=== PATIENT | female | born 1995 | race American Indian/Alaskan Native ===

== ENCOUNTER 2017-07-19 14:42 | Inpatient (IN) | payer OTHER ==
[2017-07-19 17:36] LABS: Basophils % (Auto) 0.5 % (0.0-1.8); Eosinophils % (Auto) 0.4 % (0.0-4.3); Hematocrit 34.4 % (30.3-42.9); Hemoglobin 11.5 gm/dl (10.1-14.3); Mean Corpuscular HGB Conc 34 % (30-34); Mean Corpuscular Hemoglobin 29 pg (28-32); Mean Corpuscular Volume 86 fl (79-97); Platelet Count 258 K/mm3 (140-440); Red Blood Count 4.01 M/mm3 (3.65-5.03); Red Cell Distribution Width 14.2 % (13.2-15.2); White Blood Count 13.7 K/mm3 (4.5-11.0)
[2017-07-19 17:54] LABS: Alanine Aminotransferase 7 units/L (7-56); Albumin 4.3 g/dL (3.9-5); Albumin/Globulin Ratio 1.3 %; Alkaline Phosphatase 51 units/L (35-129); Anion Gap 18 mmol/L; BUN/Creatinine Ratio 23; Blood Urea Nitrogen 14 mg/dL (7-17); Calcium 9.2 mg/dL (8.4-10.2); Carbon Dioxide 23 mmol/L (22-30); Glucose 100 mg/dL (65-100); Lipase 24 units/L (13-60); Potassium 3.9 mmol/L (3.6-5.0); Sodium 137 mmol/L (137-145); Total Protein 7.6 g/dL (6.3-8.2)
[2017-07-19 19:33] LABS: Bilirubin,Urine NEG (Negative); Blood,Urine SM (Negative); Ketones,Urine TR mg/dL (Negative); Leukocyte Esterase,Urine NEG (Negative); Mucus,Urine 3+ /HPF; Nitrite,Urine NEG (Negative); Urobilinogen,Urine < 2.0 mg/dL (<2.0)
--- NOTE | 2017-07-19 23:15 | Emergency Department Report ---
HPI - General Chief Complaint: Urogenital-Female Time Seen by Provider: 07/19/17 22:41 - HPI HPI: This is a 22-year-old female presents to the emergency department with the complaint of some body aches, lower abdominal/pelvic discomfort and suprapubic or pelvic pressure that she believes is a urinary tract infection and all this has been going on for the past 2 weeks. It appeared to worsen last night. She is not taking anything for her symptoms prior to presentation. She also complains of some nonspecific dizziness. She says that she is late on her current menstrual cycle as her last menstrual cycle was about 06/12/17. She has concern about some of the symptoms that she says the last time she had this set of symptoms it was a miscarriage with some type of placental rupture or abruption. She does not currently have a primary care physician or FINANCIAL AIDS OFFICER. No recent travel or sick contacts at home. She denies any vaginal bleeding, fever, nausea, vomiting. ED Past Medical Hx - Past Medical History Previous Medical History?: Yes - Surgical History Past Surgical History?: Yes Additional Surgical History: Miscarriage 2015 - Social History Smoking Status: Former Smoker Substance Use Type: Other ED Review of Systems ROS: Stated complaint: BLOOD IN URINE, ABDOMINAL PAIN Other details as noted in HPI Comment: All other systems reviewed and negative Constitutional: denies: chills, fever Eyes: denies: eye pain, eye discharge, vision change ENT: denies: ear pain, throat pain Respiratory: denies: cough, shortness of breath, wheezing Cardiovascular: denies: chest pain, palpitations Gastrointestinal: abdominal pain. denies: nausea, vomiting Genitourinary: dysuria. denies: discharge Musculoskeletal: myalgia. denies: joint swelling Skin: denies: rash, lesions Neurological: other (dizzy). denies: headache, weakness, paresthesias Physical Exam - Physical Exam Vital Signs: Vital Signs 07/19/17 07/19/17 17:02 22:11 Temperature 98.8 F 98.3 F Pulse Rate 134 H 116 H Respiratory 20 20 Rate Blood Pressure 123/85 134/77 O2 Sat by Pulse 97 100 Oximetry Physical Exam: GENERAL: The patient is well-developed well-nourished. HENT: Normocephalic. Atraumatic. Patient has moist mucous membranes. EYES: Extraocular motions are intact. Pupils equal reactive to light bilaterally. NECK: Supple. Trachea is midline. CHEST/LUNGS: Clear to auscultation. There is no respiratory distress noted. HEART/CARDIOVASCULAR: Regular. There is mild tachycardia. There is no gallop rub or murmur. ABDOMEN: Abdomen is soft. There is some tenderness palpation to the lower quadrants of the abdomen. No guarding or rebound tenderness. No peritoneal signs. Patient has normal bowel sounds. There is no abdominal distention. SKIN: Skin is warm and dry. NEURO: The patient is awake, alert, and oriented. The patient is cooperative. The patient has no focal neurologic deficits. The patient has normal speech. MUSCULOSKELETAL: There is no tenderness or deformity. There is no limitation range of motion. There is no evidence of acute injury. ED Course Vital Signs 07/19/17 07/19/17 17:02 22:11 Temperature 98.8 F 98.3 F Pulse Rate 134 H 116 H Respiratory 20 20 Rate Blood Pressure 123/85 134/77 O2 Sat by Pulse 97 100 Oximetry - Consultations Consultation #1: I spoke to the FINANCIAL AIDS OFFICER professional bondsman, Dr. Quinones, regarding the patient's presentation , labs and the imaging study showing concern for ectopic in the abdomen. She recommended admission to her service to mother baby, IV fluid resuscitation at 125 mL per hour, and they will evaluate the patient in the morning. 07/20/17 00:53 ED Medical Decision Making - Lab Data Result diagrams: 07/19/17 17:22 07/19/17 17:22 - Radiology Data Radiology results: report reviewed EXAM: US OB T lt; = 14 WEEKS FETUS HISTORY: preg, abd pain TECHNIQUE: Transabdominal imaging was obtained of the pelvis. FINDINGS: The uterus measures 9.2 cm x 4 cm x 5.4 cm. The endometrial thickness is 11.6 millimeters and is heterogeneous in echotexture. There is no evidence of an intrauterine . There is a complex mass superior to the bladder and anterior to the uterus measuring 5.1 cm x 6.1 cm x 5.3 cm. An ectopic is suspected. There is considerable free fluid the pelvis. The maternal right ovary measures 3.3 cm x 2.1 cm x 3.1 cm. The left ovary measures 4.4 cm x 2.1 cm x 3.7 cm. IMPRESSION: Complex mass superior to the bladder and anterior to the uterus measuring 5.1 cm x 6.1 cm x 5.3 cm with associated to considerable free fluid the pelvis. Ectopic is suspected. No evidence of an IUP otherwise. Transcribed By: RB Dictated By: QUITA CHUNG MD Electronically Authenticated By: QUITA CHUNG MD Signed Date/Time: 07/19/172021 - Medical Decision Making 22-year-old female presents with a few weeks of some lower abdominal and/or pelvic discomfort and a sensation like she has a urinary tract infection. This worsened last night. Labs are grossly unremarkable except for she was positive for a urine and then had a beta hCG of about 1300. Sent for an ultrasound which shows a complex mass superior to the bladder and anterior to the uterus concerning for an ectopic . She will be admitted to mother baby for further evaluation by FINANCIAL AIDS OFFICER. The patient understands and agrees to the plan. - Differential Diagnosis , ectopic, fibroids, UTI Critical Care Time: No Critical care attestation.: If time is entered above; I have spent that time in minutes in the direct care of this critically ill patient, excluding procedure time. ED Disposition Clinical Impression: Pelvic pain Ectopic without intrauterine Qualifiers: Location of ectopic : abdominal Qualified Code(s): O00.00 - Abdominal without intrauterine Abdominal pain Qualifiers: Abdominal location: lower abdomen, unspecified Qualified Code(s): R10.30 - Lower abdominal pain, unspecified Disposition: -09 OP ADMIT IP TO THIS HOSP Is pt being admited?: Yes Condition: Stable Referrals: PRIMARY CARE, [Primary Care Provider] - 3-5 Days Time of Disposition: 00:49
--- NOTE | 2017-07-20 00:25 | Ultrasound Report ---
FINAL REPORT EXAM: US OB \T\lt; = 14 WEEKS FETUS HISTORY: preg, abd pain TECHNIQUE: Transabdominal imaging was obtained of the pelvis. FINDINGS: The uterus measures 9.2 cm x 4 cm x 5.4 cm. The endometrial thickness is 11.6 millimeters and is heterogeneous in echotexture. There is no evidence of an intrauterine . There is a complex mass superior to the bladder and anterior to the uterus measuring 5.1 cm x 6.1 cm x 5.3 cm. An ectopic is suspected. There is considerable free fluid the pelvis. The maternal right ovary measures 3.3 cm x 2.1 cm x 3.1 cm. The left ovary measures 4.4 cm x 2.1 cm x 3.7 cm. IMPRESSION: Complex mass superior to the bladder and anterior to the uterus measuring 5.1 cm x 6.1 cm x 5.3 cm with associated to considerable free fluid the pelvis. Ectopic is suspected. No evidence of an IUP otherwise.
--- NOTE | 2017-07-20 00:44 | Ultrasound Report ---
FINAL REPORT EXAM: US OB TRANSVAGINAL HISTORY: preg, abd pain TECHNIQUE: Transvaginal imaging was obtained the pelvis. FINDINGS: The uterus is anteverted measuring 9.2 cm x 4 cm x 5.4 cm. The endometrial thickness is 11.6 millimeters and has a somewhat heterogeneous echotexture. And IUP is not identified. Above the bladder is a large complex mass position anterior to the uterus measuring 5.1 cm x 6.1 cm x 5.3 cm. This is suspicious for an ectopic . There is considerable free fluid in the pelvis. Hemoperitoneum cannot be excluded. The maternal ovaries are unremarkable. The right ovary measures 3.3 cm x 2.1 cm x 3.1 cm. The left ovary measures 4.4 cm x 2.1 cm x 3.7 cm. IMPRESSION: Complex mass above the bladder as described with considerable free fluid the pelvis. The findings are highly suspicious for an ectopic with hemoperitoneum. No evidence of an IUP otherwise. The findings were discussed with Dr. Arciniega at 12:23 a.m. on 07/20/2017.
[2017-07-20] MEDS ORDERED: NACL 0.9% 1000 ML 1,000 ML IV SCH (01:00)
--- NOTE | 2017-07-20 02:42 | History and Physical Report ---
History of Present Illness Date of examination: 07/20/17 Date of admission: 07/20/17 00:49 Chief complaint: Missed period and abdominal pain History of present illness: This is a 22-year-old female 3, para 0 who comes in with a history of last menstrual period of 06/12/2017 and vague lower abdominal pain and some dizziness. HCG level is 1332 and transvaginal and abdominal ultrasonography show an echogenic mass anterior to the uterus and a moderate amount of free fluid and what is probably blood in the pelvis. The patient does not appear unstable, however, is very tender on abdominal palpation, and her abdomen is slightly distended. Vital signs are slightly abnormal with some tachycardia. I discussed these results with the patient and explained to her that there is clearly intra-abdominal bleeding coming from the pelvis as seen on the pelvic ultrasound. There is a mass in the pelvis and that the most likely explanation of this appearance is an ectopic that is ruptured. Also, explained is unusual to see this at this early stage of destinations that she is only about 5 weeks and that there were other explanations that were possible, including but not limited to a ruptured ovarian cyst of some sort and a concomitant very early . I explained that it would to require operation to sort this out and she was consented for laparoscopy or laparotomy depending on my judgment at the time of surgery or depending on the need to evaluating, removing or even saving some structures. She understands that there is a possibility of losing part or all of the fallopian tube and part or all of an ovary. Her past OB history is significant for a spontaneous at 9 weeks in 2014 and another spontaneous at "2 months"when she had to be given medicine to pass what remained of the fetus after her water broke spontaneously. She denies STDs, except for chlamydia, which she knows she was diagnosed with 2014. She does not know her blood type but does not remember being given RhoGAM in the past. Past History Past Medical History: no pertinent history Past Surgical History: no surgical history HEADHUNTER History: chlamydia. denies: gonorrhea, HIV Family/Genetic History: none Medications and Allergies Allergies Allergy/AdvReac Type Severity Reaction Status Date / Time shellfish derived Allergy Hives Verified 07/19/17 17:02 mosquitos Allergy Rash Uncoded 07/19/17 17:02 oranges Allergy Rash Uncoded 07/19/17 17:02 Active Meds: Active Medications Sodium Chloride (Nacl 0.9% 1000 Ml) 1,000 mls @ 125 mls/hr IV DIRECT JUNIOR Review of Systems All systems: negative - Vital Signs Vital signs: Vital Signs Temp Pulse Resp BP Pulse Ox 98.8 F 134 H 20 123/85 97 07/19/17 17:02 07/19/17 17:02 07/19/17 17:02 07/19/17 17:02 07/19/17 17:02 Temp Pulse Resp BP Pulse Ox 98.5 F 109 H 23 97/54 100 07/20/17 00:25 07/20/17 00:30 07/20/17 00:30 07/20/17 00:30 07/20/17 00:30 - Physical Exam Breasts: Positive: deferred Cardiovascular: Regular rate Lungs: Positive: Clear to auscultation Abdomen: Positive: distention, tenderness, guarding (some guarding on deep palpation) Genitourinary (Female): Positive: normal external genitalia (remainder of pelvic exam deferred due to possible rupturing ectopic ) Results Result Diagrams: 07/19/17 17:22 07/19/17 17:22 All other labs normal. Assessment and Plan - Patient Problems (1) Hemorrhage, intra-abdominal Current Visit: Yes Status: Acute Plan to address problem: Patient to be taken to the OR to evaluate what appears to be intra-abdominal bleeding coming from the pelvis and is most likely a ruptured ectopic . However, there is some on typical aspects of this including a mass anterior to the uterus and is possible that this is a ruptured ovarian cyst or a ruptured dermoid, although the patient does not appear to be tender enough for ruptured dermoid. We will attempt to do this laparoscopically. However, the patient's consented for conversion to laparotomy if necessary. She is also consented for blood transfusion. (2) Ectopic without intrauterine Current Visit: Yes Status: Acute Qualifiers: Location of ectopic : abdominal Laterality: L Qualified Code(s) : O00.00 - Abdominal without intrauterine
--- NOTE | 2017-07-20 03:23 | Anesthesia Consultation ---
Anesthesia Consult and Med Hx Date of service: 07/20/17 - Airway Anesthetic Teeth Evaluation: Good ROM Head & Neck: Adequate Mental/Hyoid Distance: Adequate Mallampati Class: Class I Intubation Access Assessment: Good - Pulmonary Exam CTA: Yes - Cardiac Exam Cardiac Exam: RRR - Pre-Operative Health Status ASA Pre-Surgery Classification: ASA2, Emergency Proposed Anesthetic Plan: General - Pulmonary Hx Smoking: No (former) Hx Asthma: Yes (minemal inhaler use) - Cardiovascular System Hx Cardia Arrhythmia: Yes (tachycardia)
--- NOTE | 2017-07-20 03:23 | Anesthesia Day of Surgery ---
Anesthesia Day of Surgery - Day of Surgery Patient Examined: Yes Patient H&P Reviewed: Yes Patient is NPO: Yes
[2017-07-20] MEDS ORDERED: PERCOCET 5/325 PO PRN ×2 (03:24→05:10)
[2017-07-20] MEDS ORDERED: ZOFRAN IV PRN ×2 (03:24→05:10)
[2017-07-20] MEDS ORDERED: DILAUDID IV PRN (03:24)
[2017-07-20] MEDS ORDERED: DIPRIVAN 10 MG/ML IV ONE (03:53)
[2017-07-20] MEDS ORDERED: SUBLIMAZE ONE ×2 (03:54→05:13)
[2017-07-20] MEDS ORDERED: XYLOCAINE MPF 2% ONE ×2 (03:57→04:52)
[2017-07-20] MEDS ORDERED: QUELICIN ONE (03:57)
[2017-07-20] MEDS ORDERED: ZOFRAN ONE (03:57)
[2017-07-20] MEDS ORDERED: ZEMURON IV ONE (03:57)
[2017-07-20] MEDS ORDERED: LACTATED RINGERS 1,000 ML ONE ×3 (03:59→05:13)
[2017-07-20] MEDS ORDERED: PEPCID IV ONE (04:00)
[2017-07-20] MEDS ORDERED: TORADOL ONE (04:00)
[2017-07-20] MEDS ORDERED: PEPCID IV NR (04:00)
[2017-07-20] MEDS ORDERED: MARCAINE 0.5% 30 ML INFILTRATI ONE (04:25)
--- NOTE | 2017-07-20 05:09 | Operative Report ---
Operative Report Operative Report: Date of procedure: 07/20/2017 Pre-operative diagnosis: Moderate amount of blood/free fluid in the abdomen on ultrasonography with hCG of 1332, strongly suspect ectopic , known ovarian cyst seen on ultrasound. Post-operative diagnosis: Same with hemoperitoneum slightly greater than 650 mL no some obvious source of bleeding identified. After careful observation and suction irrigation of the abdomen. No source of bleeding could be identified and the bleeding was not reaccumulating and was not bright red. No evidence of ectopic , although with an hCG level of 1332 that might not be obvious , but there was no blood coming from the ends of either fallopian tube. It might be possible that this patient did have an ectopic that aborted out the tube and could not be seen, but this was not evident to me. Procedure name(s): Diagnostic laparoscopy with placement of intrauterine manipulator, puncture aspiration of right ovarian cyst that was approximately 2- 3 cm in size, yielding clear fluid which was sent for pathological examination. Inspection of upper and lower abdomen evacuation of clot anterior to the uterus, which was previously identified as a complex mass by ultrasonography. Surgeon: Christina Quinnoes [employer]r Marine: OLIVER Anesthesia: Gen. Endotracheal Findings: Normal tubes, uterus and ovaries with a right ovarian cyst with clear fluid, which is 2-3 cm in size. Both fallopian tubes appeared normal in appearance. There was no blood coming from the end of the fallopian tubes. There was no obvious apparent bleeding from the ovarian cyst. No other source of blood could be identified in the upper or lower abdomen and the blood was not reaccumulating. EBL: 650 mL plus irrigation fluid of 1250 mL for a total out of 1900 Procedure in detail: Patient states to the operating room and placed in supine position. After adequate general endotracheal anesthesia was obtained she was prepped and draped in the usual fashion for laparoscopic surgery in a sterile fashion. Surgical timeout was taken with all members of the team attentive. A Ramos catheter was placed and then the cervix was exposed with retractors serially dilated and a HUMI manipulator was placed in this. There was a small laceration of the cervix from the tenaculum. This was repaired with a single suture of 4-0 Vicryl at the end of the case. Attention was then turned to the abdomen and a small vertical incision was made in the inferior portion of the umbilicus and a 5 mm trocar was placed through this under direct visualization confirmed intra-abdominal placement when we encountered blood. Under direct visualization. A second port of 11 mm trocar was placed in a similar fashion suprapubically and ultimately a third trocar in the left lower quadrant was placed which was also a 5 mm. Using a combination of suction and irrigation and manipulation of the uterus. The hemoperitoneum which pretty much filled the pelvis was completely evacuated part of this hemoperitoneum was a fairly organized clot, approximately 6 cm in diameter that was anterior to the uterus. After this was completed, the pelvis was inspected and surprisingly there was no evident ectopic . Both fallopian tubes were carefully inspected. There was absolutely no blood coming from either of them and the right ovarian cyst was not bleeding. A laparoscopic puncture needle was used to puncture and aspirate the ovarian cyst and this fluid was sent for pathological examination and the remainder of it was allowed to drain out and was suctioned. Photographs were taken. Attention was then turned to the upper abdomen and fairly careful inspection revealed no obvious abnormalities and no obvious source of bleeding. In addition, there did not appear to be any fresh bleeding reaccumulating in the upper abdomen or the lower abdomen. The patient was placed in and out of Trendelenburg and reverse Trendelenburg in an attempt to remove most of the blood from the abdomen and this was successful. Again, no obvious source of bleeding or recurrent bleeding could be identified. The procedure was then terminated and all the instruments were removed abdominally and vaginally. The incisions on the abdomen were closed with interrupted subcuticular sutures of 4-0 Vicryl for the small ones, and the larger incision was closed with a running subcuticular suture of 4-0 Vicryl after a single suture of 0 Vicryl was placed to reapproximate the fascial tissue and that incision only. Estimated blood loss for the surgical part of the procedure was minimal, less than 5 mL all the blood loss being old blood that constituted the intra- abdominal hemorrhage, none of which was actually bright red blood. The patient tolerated the procedure well and was discharged to PACU in good condition.
[2017-07-20] MEDS ORDERED: NARCAN 0.4 MG/1 ML IV PRN (05:10)
[2017-07-20] MEDS ORDERED: SODIUM CHLORIDE FLUSH SYRINGE 10 ML IV PRN (05:10)
[2017-07-20] MEDS ORDERED: MORPHINE IV PRN ×2 (05:10)
[2017-07-20] MEDS ORDERED: ROBINUL ONE (05:24)
[2017-07-20] MEDS ORDERED: NEOSTIGMINE ONE (05:25)
[2017-07-20] MEDS ORDERED: D5LR 1,000 ML IV SCH (06:00)
--- NOTE | 2017-07-20 06:09 | Post Anesthesia Evaluation ---
- Post Anesthesia Evaluation Patient Participated: Yes Airway Patent: Yes Stable Respiratory Function: Yes Temp > 96.8F: Yes Pain Manageable: Yes Adequeate Hydration: Yes Anesthesia Complications: No
--- NOTE | 2017-07-20 07:36 | Progress Note ---
Assessment and Plan pt w/o complaint Her only question "Am I still ?" I exp that we will follow her [facility] and will continue to assess her. Reassured pt her tubes and ovaries were still in her body. BP 120/78 HR 112 Resp wnl Lungs clear bilateral. Stable s/p exp lap for blood in the abdomen poss ectopic P: continue pathway Will report to all findings. Pt did ask to go home today if possible. Subjective - Subjective Date of service: 07/20/17 (pt alert and oriented ) Patient reports: voiding normally (clear yellow urine to BSB), pain well controlled, flatus Objective - Vital Signs Latest vital signs: Vital Signs Temp Pulse Resp BP BP Pulse Ox 07/20/17 07:11 99.0 F 129 H 18 113/71 100 07/20/17 06:15 98.8 F 106 H 20 113/71 100 07/20/17 06:07 20 07/20/17 06:00 105 H 18 117/78 100 07/20/17 05:45 95 H 16 115/73 99 07/20/17 05:40 93 H 16 110/70 99 07/20/17 05:35 94 H 14 110/75 99 07/20/17 05:30 96 H 16 121/79 99 07/20/17 05:25 99.2 F 116 H 16 129/83 99 07/20/17 03:00 98.7 F 112 H 18 120/78 100 Intake and Output 07/19/17 07/20/17 07/20/17 22:59 06:59 14:59 Intake Total 450 Output Total 60 100 Balance 390 -100 Intake: IV 450 Output: Urine 60 100 Indwelling Catheter 100 Other: Total, Output Amount 100 - Exam Breasts: Present: normal Lungs: Present: Clear to auscultation Abdomen: Present: normal appearance, normal bowel sounds Uterus: Present: normal Extremities: Present: normal Deep Tendon Reflex Grade: Normal +2 Incision: Present: dry (3 trochar sites dry and intact), intact
[2017-07-20] MEDS: TORADOL IV SCH ×3 (08:14→19:46)
[2017-07-20 09:23] LABS: Hematocrit 24.9 % (30.3-42.9); Mean Corpuscular HGB Conc 32 % (30-34); Mean Corpuscular Hemoglobin 28 pg (28-32); Mean Corpuscular Volume 87 fl (79-97); Platelet Count 188 K/mm3 (140-440); Red Blood Count 2.85 M/mm3 (3.65-5.03); Red Cell Distribution Width 13.7 % (13.2-15.2); White Blood Count 13.4 K/mm3 (4.5-11.0)
[2017-07-20] MEDS: NORCO 5/325 PO PRN (12:45)
[2017-07-20] MEDS ORDERED: TYLENOL PO SCH ×2 (14:00→16:30)
[2017-07-20] MEDS: TYLENOL PO SCH ×2 (16:36→23:33)
--- NOTE | 2017-07-20 20:22 | Progress Note ---
Assessment and Plan - Patient Problems (1) Abnormal Current Visit: Yes Status: Acute Qualifiers: Trimester: first trimester Qualified Code(s): O26.91 - related conditions, unspecified, first trimester Plan to address problem: Operative note and images discussed with patient. Questions answered Will remove lugo INT IV Advance diet Possibly d/c tomorrow (2) Abdominal pain Current Visit: Yes Status: Resolved Qualifiers: Abdominal location: lower abdomen, unspecified Qualified Code(s): R10.30 - Lower abdominal pain, unspecified (3) Hemorrhage, intra-abdominal Current Visit: Yes Status: Resolved (4) Anemia Current Visit: Yes Status: Acute Qualifiers: Anemia type: A Iron deficiency anemia type: I Vitamin B12 deficiency anemia type: V Folate deficiency anemia type: F Bone marrow failure anemia type: B Hemolytic anemia type: H Other causes of anemia: acute posthemorrhagic Chronic kidney disease stage: C Qualified Code(s): D62 - Acute posthemorrhagic anemia Subjective - Subjective Date of service: 07/20/17 Patient reports: appetite normal, pain well controlled Objective - Vital Signs Latest vital signs: Vital Signs Temp Pulse Pulse Resp BP BP Pulse Ox 07/20/17 15:05 98.7 F 98 H 18 95/64 100 07/20/17 12:35 92 H 100/65 100 07/20/17 12:14 108 H 07/20/17 11:20 99.6 F 118 H 20 91/56 100 07/20/17 08:14 100 H 07/20/17 07:58 100 H 07/20/17 07:35 99.0 F 117 H 18 114/72 100 07/20/17 07:11 99.0 F 129 H 18 113/71 100 07/20/17 06:15 98.8 F 106 H 20 113/71 100 07/20/17 06:07 20 07/20/17 06:00 105 H 18 117/78 100 07/20/17 05:45 95 H 16 115/73 99 07/20/17 05:40 93 H 16 110/70 99 07/20/17 05:35 94 H 14 110/75 99 07/20/17 05:30 96 H 16 121/79 99 07/20/17 05:25 99.2 F 116 H 16 129/83 99 07/20/17 03:00 98.7 F 112 H 18 120/78 100 Intake and Output 07/20/17 07/20/17 07/20/17 06:59 14:59 22:59 Intake Total 450 540 Output Total 60 2400 600 Balance 390 -1860 -600 Intake: IV 450 Oral 540 Output: Urine 60 2400 600 Indwelling Catheter 2400 600 Other: Total, Intake Amount 300 Total, Output Amount 600 300 Voiding Method Indwelling Catheter Indwelling Catheter - Exam Breasts: Present: deferred Cardiovascular: Present: Regular rate Lungs: Present: Clear to auscultation, Normal air movement Abdomen: Present: normal appearance, soft, normal bowel sounds. Absent: distention, tenderness, guarding Extremities: Present: normal - Labs Labs: Abnormal lab results 07/20/17 07/20/17 Range/Units 08:58 08:58 WBC 13.4 H (4.5-11.0) K/mm3 RBC 2.85 L (3.65-5.03) M/mm3 Hgb 8.0 L D (10.1-14.3) gm/dl Hct 24.9 L D (30.3-42.9) % HCG, Quant 880.2 H (0-4) mIU/mL
[2017-07-20] MEDS: COLACE PO SCH (21:38)
[2017-07-20] MEDS: FEOSOL PO SCH (21:38)
[2017-07-21] MEDS: TORADOL IV SCH (02:22)
[2017-07-21] MEDS: TYLENOL PO SCH ×2 (05:05→11:32)
[2017-07-21] MEDS: FEOSOL PO SCH ×2 (08:37→14:48)
[2017-07-21] MEDS: COLACE PO SCH (11:32)
[2017-07-21] MEDS: NORCO 5/325 PO PRN (14:48)
[2017-07-21 18:46] VITALS: BP 106/65
--- NOTE | 2017-07-21 19:52 | Discharge Summary ---
Providers - Providers Date of Admission: 07/20/17 00:49 Date of discharge: 07/21/17 Attending physician: VALERIE TATUM Primary care physician: JUANY FELIPE MD Hospitalization Reason for admission: other (abdominal pain) Delivery: other Procedure: other (dx /operative lap) Procedure details: see op note Incision: normal, dry, intact Hospital course: Pt admitted for the above stated procedure. Hospital course was not complicated. pt to be d/c home today. Condition at discharge: Good Disposition: DC-01 TO HOME OR SELFCARE - Discharge Diagnoses (1) Abnormal Status: Acute Qualifiers: Trimester: first trimester Qualified Code(s): O26.91 - related conditions, unspecified, first trimester (2) Anemia Status: Acute Qualifiers: Anemia type: A Iron deficiency anemia type: I Vitamin B12 deficiency anemia type: V Folate deficiency anemia type: F Bone marrow failure anemia type: B Hemolytic anemia type: H Other causes of anemia: acute posthemorrhagic Chronic kidney disease stage: C Qualified Code(s): D62 - Acute posthemorrhagic anemia (3) Ectopic without intrauterine Status: Acute Qualifiers: Location of ectopic : abdominal Laterality: L Qualified Code(s) : O00.00 - Abdominal without intrauterine (4) Pelvic pain Status: Acute (5) Abdominal pain Status: Resolved Qualifiers: Abdominal location: lower abdomen, unspecified Qualified Code(s): R10.30 - Lower abdominal pain, unspecified (6) Hemorrhage, intra-abdominal Status: Resolved Plan - Discharge Medications Prescriptions: HYDROcodone/APAP 5-325 [Hext 5/325] 1 each PO Q6HR PRN #20 tablet PRN Reason: Pain Ibuprofen [Motrin 600 MG tab] 600 mg PO Q8H PRN #30 tablet PRN Reason: Pain - Provider Discharge Summary Additional instructions: [] Smoking cessation referral if applicable(refer to patient education folder for contact #) [] Refer to [facility]'s [facility] Booklet Call your doctor immediately for: * Fever > 100.5 * Heavy vaginal bleeding ( >1 pad per hour) * Severe persistent headache * Shortness of breath * Reddened, hot, painful area to leg or breast * Drainage or odor from incision. * Keep incision clean and dry at all times and follow doctor's instructions regarding bathing/showering - Follow up plan Follow up: PRIMARY CARE, [Primary Care Provider] - 3-5 Days VALERIE TATUM MD [Staff Physician] - 7 Days
== END 2017-07-21 21:30 | disposition home or self-care (01) | DRG 742 ==
LOC: ED 14:42 → OB 07-20 00:49
PROVIDERS: ADMIT Obstetrics & Gynecology; ATTEND Obstetrics & Gynecology
PROC: 0U904ZZ Drainage of Right Ovary, Percutaneous Endoscopic Approach (ICD-10-PCS; principal; 2017-07-20)
DX: N83.201 Unspecified ovarian cyst, right side (principal); K66.1 Hemoperitoneum; N88.1 Old laceration of cervix uteri; Z87.891 Personal history of nicotine dependence; D64.9 Anemia, unspecified
CPT/HCPCS: 36415; 76801; 76817; 80053; 81001; 81025; 83690; 84702; 85014; 85018; 85025; 85027; 86850; 86900; 86901; 88112; 88305; 96374; 96375; 99285; J0330; J1885; J2270; J2405; J2704; J2710; J3010; J7120; J7121

== ENCOUNTER 2019-04-20 01:25 | Inpatient (IN) | payer OTHER ==
[2019-04-20] MEDS ORDERED: BRETHINE SUB-Q PRN (01:35)
[2019-04-20] MEDS ORDERED: ZOFRAN IV PRN ×2 (01:35→12:23)
[2019-04-20] MEDS ORDERED: XYLOCAINE 2% INFILTRATI ONE (01:35)
[2019-04-20] MEDS ORDERED: SUBLIMAZE IV PRN (01:35)
[2019-04-20] MEDS ORDERED: MINERAL OIL PO PRN (01:35)
[2019-04-20] MEDS ORDERED: BRETHINE IVP PRN (01:35)
[2019-04-20] MEDS ORDERED: NARCAN 0.4 MG/1 ML IV PRN (01:35)
[2019-04-20] MEDS ORDERED: STADOL IV PRN (01:35)
[2019-04-20] MEDS ORDERED: LACTATED RINGERS 1,000 ML IV SCH (02:00)
[2019-04-20] MEDS ORDERED: PITOCin/NS 30 UNIT/500ML 30 UNITS/500 ML BAG IV SCH (02:00)
[2019-04-20] MEDS ORDERED: PITOCin/NS 20 UNIT/1000ML DRIP 20 UNITS/1,000 ML BAG IV SCH ×2 (02:00→12:23)
[2019-04-20] MEDS ORDERED: FLAGYL PO ONE ×2 (02:05→06:12)
[2019-04-20 02:33] LABS: Hematocrit 37.9 % (30.3-42.9); Hemoglobin 12.5 gm/dl (10.1-14.3); Mean Corpuscular HGB Conc 33 % (30-34); Mean Corpuscular Volume 87 fl (79-97); Platelet Count 197 K/mm3 (140-440); Red Blood Count 4.37 M/mm3 (3.65-5.03); Red Cell Distribution Width 14.4 % (13.2-15.2)
[2019-04-20] MEDS ORDERED: MARCAINE 0.25% INFILTRATI ONE ×2 (04:03→08:42)
[2019-04-20] MEDS ORDERED: NARCAN 2 MG/2 ML IV PRN (04:27)
--- NOTE | 2019-04-20 04:27 | Anesthesia Consultation ---
Anesthesia Consult and Med Hx Date of service: 04/20/19 - Airway Anesthetic Teeth Evaluation: Good ROM Head & Neck: Adequate Mental/Hyoid Distance: Adequate Mallampati Class: Class II Intubation Access Assessment: Good - Pulmonary Exam CTA: Yes - Cardiac Exam Cardiac Exam: RRR - Pre-Operative Health Status ASA Pre-Surgery Classification: ASA2, Emergency Proposed Anesthetic Plan: Epidural - Pulmonary Hx Smoking: No (former) Hx Asthma: Yes ( A CHILD) COPD: No Hx Pneumonia: No - Cardiovascular System Hx Hypertension: No Hx Cardia Arrhythmia: Yes (tachycardia) - Central Nervous System Hx Seizures: No Hx Psychiatric Problems: No - Endocrine Hx Renal Disease: No Hx End Stage Renal Disease: No Hx Hypothyroidism: No Hx Hyperthyroidism: No - Hematic Hx Anemia: No Hx Sickle Cell Disease: No
[2019-04-20] MEDS ORDERED: fentaNYL-BUPIV 2 MCG/ML-0.125% 200 MCG/100 ML BAG EPIDURAL SCH (05:00)
[2019-04-20] MEDS ORDERED: METHERGINE IM ONE ×3 (09:50→13:00)
--- NOTE | 2019-04-20 10:02 | History and Physical Report ---
History of Present Illness Date of examination: 04/20/19 Date of admission: 04/20/19 01:30 Chief complaint: rupture of membranes History of present illness: Pt is a 24 year old -Malaysian DYAN 04/20/19 at 40w0d who presents with rupture of membranes at 2200 on 04/19/19. She reports regular contractions and denies vaginal bleeding. She has had care at [facility] since 19 wks complicated by EIF s/p MFM referral, UTi s/p treatment, trichomonas s/p treatment but no test of cure yet. She is GBS negative. Past History Past Medical History: no pertinent history Past Surgical History: SUPPLY MANAGER/uterine surgery SUPPLY MANAGER History: trichomonas (treated, no test of cure yet ) Family/Genetic History: diabetes Social history: no significant social history - Obstetrical History Expected Date of Delivery: 04/20/19 Actual Gestation: 40 Week(s) 0 Day(s) : 4 Para: 0 Hx # Term Pregnancies: 0 Number of Pregnancies: 0 Spontaneous Abortions: 3 Induced : 0 Number of Living Children: 0 Medications and Allergies Allergies Allergy/AdvReac Type Severity Reaction Status Date / Time shellfish derived Allergy Hives Verified 07/19/17 17:02 mosquitos Allergy Rash Uncoded 07/19/17 17:02 oranges Allergy Rash Uncoded 07/19/17 17:02 Home Medications Medication Instructions Recorded Confirmed Last Taken Type HYDROcodone/APAP 5-325 [[place] 1 each PO Q6HR PRN #20 tablet 07/20/17 Unknown Rx 5/325] Ibuprofen [Motrin 600 MG tab] 600 mg PO Q8H PRN #30 tablet 07/20/17 Unknown Rx Active Meds: Active Medications Butorphanol Tartrate (Stadol) 2 mg IV Q2H PRN PRN Reason: Pain , Severe (7-10) Ephedrine Sulfate (Ephedrine Sulfate) 10 mg IV Q2M PRN PRN Reason: Hypotension Last Admin: 04/20/19 06:26 Dose: 10 mg Documented by: Ephedrine Sulfate (Ephedrine Sulfate) 10 mg IV Q2M PRN PRN Reason: Hypotension Fentanyl (Sublimaze) 100 mcg IV Q2H PRN PRN Reason: Labor Pain Oxytocin/Sodium Chloride (Pitocin/Ns 20 Unit/1000ml Drip) 20 units in 1,000 mls @ 125 mls/hr IV DIRECT JUNIOR Oxytocin/Sodium Chloride (Pitocin/Ns 30 Unit/500ml) 30 units in 500 mls @ 2 mls/hr IV TITR JUNIOR; Protocol Last Admin: 04/20/19 08:05 Dose: 2 ml/hr, 2 mls/hr Documented by: Lactated Ringer's (Lactated Ringers) 1,000 mls @ 125 mls/hr IV DIRECT JUNIOR Last Admin: 04/20/19 03:00 Dose: 125 mls/hr Documented by: Fentanyl/Bupivacaine/Sodium Chlor (Fentanyl-Bupiv 2 Mcg/Ml-0.125%) 200 mcg in 100 mls @ 12 mls/hr EPIDURAL TITR JUNIOR; Protocol Last Admin: 04/20/19 04:57 Dose: 12 mls/hr Documented by: Mineral Oil (Mineral Oil) 30 ml PO QHS PRN PRN Reason: Constipation Naloxone HCl (Narcan 0.4 Mg/1 Ml) 0.1 mg IV Q2MIN PRN PRN Reason: Res Rate </= 8 or 02 SAT < 92% Naloxone HCl (Narcan 2 Mg/2 Ml) 0.2 mg IV Q5M PRN PRN Reason: Respiratory sedation Ondansetron HCl (Zofran) 4 mg IV Q8H PRN PRN Reason: Nausea And Vomiting Terbutaline Sulfate (Brethine) 0.25 mg SUB-Q ONCE PRN PRN Reason: Hyperstimulation/Hypertonicity Terbutaline Sulfate (Brethine) 0.25 mg IVP ONCE PRN PRN Reason: Hyperstimulation/Hypertonicity Review of Systems All systems: negative - Vital Signs Vital signs: Vital Signs Pulse BP 108 H 111/66 04/20/19 01:47 04/20/19 01:47 Temp Pulse Resp BP Pulse Ox 98.7 F 110 H 18 111/65 77 L 04/20/19 07:10 04/20/19 09:53 04/20/19 07:10 04/20/19 09:53 04/20/19 09:48 - Physical Exam Breasts: Positive: deferred Cardiovascular: Regular rate Lungs: Positive: Clear to auscultation Abdomen: Positive: soft Genitourinary (Female): Positive: normal external genitalia Uterus: Positive: enlarged (gravid ) Extremities: Positive: normal - Obstetrical FHR: auscultation normal Uterine Contraction Monitor Mode: External Cervical Dilatation: 10 Cervical Effacement Percentage: 100 station: +3 Uterine Contraction Pattern: Regular Uterine Tone Measurement Phase: Resting Uterine Contraction Intensity: Strong/Firm Results Result Diagrams: 04/20/19 02:12 Abnormal lab results 04/20/19 Range/Units 02:12 WBC 11.4 H (4.5-11.0) K/mm3 All other labs normal. Assessment and Plan A: IUP at 40w0d Rupture of Membranes Second Stage Labor GBS Negative Trichomonas treated but no test of cure- Flagyl 2g PO ordered P: Admit to labor and delivery Flagyl 2g PO once Routine intrapartum care
--- NOTE | 2019-04-20 10:32 | Procedure Note ---
OB Delivery Note - Delivery Date of Delivery: 04/20/19 Surgeon: CRISTAL DA SILVA Estimated blood loss: 300cc - Vaginal Delivery presentation: vertex Delivery position: OA Delivery induction: none Delivery augmentation: pitocin Delivery monitor: external FHT, external uterine Route of delivery: Delivery placenta: spontaneous Episiotomy: none Delivery laceration: none Anesthesia: epidural - Infant A at 1 minute: 8 at 5 minutes: 9 Infant Gender: Male (2926g (6lb 7oz) @ 0936 am)
--- NOTE | 2019-04-20 10:44 | Post Anesthesia Evaluation ---
- Post Anesthesia Evaluation Patient Participated: Yes Airway Patent: Yes Stable Respiratory Function: Yes Nausea/Vomiting: No Temp > 96.8F: Yes Pain Manageable: Yes Adequeate Hydration: Yes Anesthesia Complications: No Block Receding Appropriately: Yes Patient on Ventilator: No
[2019-04-20] MEDS ORDERED: TYLENOL PO PRN (12:23)
[2019-04-20] MEDS ORDERED: LANSINOH TP PRN ×2 (12:23)
[2019-04-20] MEDS ORDERED: SODIUM CHLORIDE FLUSH SYRINGE 10 ML IV NR (12:23)
[2019-04-20] MEDS ORDERED: DERMOPLAST TP PRN (12:23)
[2019-04-20] MEDS ORDERED: MILK OF MAGNESIA PO PRN (12:23)
[2019-04-20] MEDS ORDERED: DULCOLAX PR PRN (12:23)
[2019-04-20] MEDS ORDERED: BENADRYL PO PRN (12:23)
[2019-04-20] MEDS ORDERED: TUCKS PAD TP PRN (12:23)
[2019-04-20] MEDS ORDERED: PHENERGAN PR PRN (12:23)
[2019-04-20] MEDS ORDERED: PHENERGAN PO PRN (12:23)
[2019-04-20] MEDS: IBUPROFEN PO SCH ×2 (13:16→19:28)
[2019-04-20] MEDS: FEOSOL PO SCH (21:50)
[2019-04-20] MEDS: NORCO 5/325 PO PRN (21:50)
[2019-04-20 23:19] LABS: Hematocrit 34.7 % (30.3-42.9); Hemoglobin 11.4 gm/dl (10.1-14.3)
[2019-04-21] MEDS: IBUPROFEN PO SCH ×3 (00:53→17:17)
[2019-04-21] MEDS: NORCO 5/325 PO PRN ×2 (05:22→21:46)
[2019-04-21] MEDS ORDERED: BOOSTRIX IM ONE (06:00)
[2019-04-21] MEDS ORDERED: M-M-R II VACCINE SUB-Q ONE (06:00)
--- NOTE | 2019-04-21 09:53 | Progress Note ---
Assessment and Plan A: PPD1 s/p Vital signs and labs stable P: Continue current care Discharge to home tomorrow Subjective - Subjective Date of service: 04/21/19 Principal diagnosis: Interval history: The patient is PPD1 s/p , no complications. Patient reports: appetite normal, voiding normally, pain well controlled, ambulating normally : doing well, bottle feeding Objective - Vital Signs Latest vital signs: Vital Signs Temp Pulse Resp BP BP Pulse Ox 04/21/19 07:48 97.6 F 84 20 96/57 99 04/20/19 23:38 98.5 F 84 20 96/58 99 04/20/19 20:40 98.5 F 87 20 93/54 100 04/20/19 16:09 98.5 F 78 18 91/55 97 04/20/19 15:58 77 95/49 97 04/20/19 11:50 97.5 F L 18 04/20/19 11:28 100 H 107/66 04/20/19 11:07 93 H 118/75 04/20/19 10:53 101 H 115/58 04/20/19 10:38 104 H 142/70 04/20/19 10:07 114 H 116/57 04/20/19 09:53 110 H 111/65 Intake and Output 04/20/19 04/21/19 04/21/19 23:59 07:59 15:59 Intake Total 240 240 Output Total 200 Balance 40 240 Intake: Oral 240 240 Output: Urine 200 Indwelling Catheter 200 Other: Total, Intake Amount 240 240 Total, Output Amount 200 # Voids Void 1 1 - Exam Cardiovascular: Present: Regular rate, Normal S1, Normal S2, No murmurs Lungs: Present: Clear to auscultation, Normal air movement Abdomen: Present: normal appearance, soft. Absent: distention, tenderness Uterus: Present: normal, firm, fundal height below umbilicus Extremities: Present: normal
--- NOTE | 2019-04-21 09:54 | Discharge Summary ---
Providers - Providers Date of Admission: 04/20/19 01:30 Date of discharge: 04/22/19 Attending physician: CRISTAL DA SILVA Primary care physician: CRISTAL DA SILVA Hospitalization Reason for admission: active labor Delivery: Episiotomy: none Laceration: none Other procedures: none complications: none Discharge diagnosis: IUP at term delivered Condition at discharge: Good Disposition: DC-01 TO HOME OR SELFCARE Plan - Discharge Medications Prescriptions: Ferrous Sulfate [Feosol 325 MG tab] 325 mg PO BID #60 tablet Ibuprofen [Motrin] 800 mg PO Q8HR PRN #30 tablet PRN Reason: Pain, Moderate (4-6) HYDROcodone/APAP 5-325 [Drums 5/325] 1 each PO Q6HR PRN #20 tablet PRN Reason: Pain - Provider Discharge Summary Activity: routine, no sex for 6 weeks, no heavy lifting 4 weeks, no strenuous exercise Diet: routine Instructions: routine Additional instructions: [] Smoking cessation referral if applicable(refer to patient education folder for contact #) [] Refer to [facility] Booklet Call your doctor immediately for: * Fever > 100.5 * Heavy vaginal bleeding ( >1 pad per hour) * Severe persistent headache * Shortness of breath * Reddened, hot, painful area to leg or breast * Drainage or odor from incision. * Keep incision clean and dry at all times and follow doctor's instructions regarding bathing/showering - Follow up plan Follow up: ALEXIA LOPEZ CNM [Advanced Practice Nurse] - 6 Weeks
[2019-04-21] MEDS: FEOSOL PO SCH ×2 (09:58→21:45)
[2019-04-22] MEDS: IBUPROFEN PO SCH ×2 (05:35→06:57)
[2019-04-22] MEDS: FEOSOL PO SCH (10:03)
[2019-04-22 14:17] VITALS: BP 105/66
== END 2019-04-22 14:00 | disposition home or self-care (01) | DRG 774 ==
LOC: TRG 01:25 → LD 01:30 → OB 12:18
PROVIDERS: ADMIT Obstetrics & Gynecology; ATTEND Obstetrics & Gynecology
PROC: 10E0XZZ Delivery of Products of Conception, External Approach (ICD-10-PCS; principal; 2019-04-20)
PROC: 3E0R3BZ Introduction of Anesthetic Agent into Spinal Canal, Percutaneous Approach (ICD-10-PCS; 2019-04-20)
PROC: 00HU33Z Insertion of Infusion Device into Spinal Canal, Percutaneous Approach (ICD-10-PCS; 2019-04-20)
PROC: 3E0234Z Introduction of Serum, Toxoid and Vaccine into Muscle, Percutaneous Approach (ICD-10-PCS; 2019-04-21)
DX: O99.52 Diseases of the respiratory system complicating childbirth (principal); O98.32 Other infections with a predominantly sexual mode of transmission complicating childbirth; J45.909 Unspecified asthma, uncomplicated; A59.9 Trichomoniasis, unspecified; Z3A.40 40 weeks gestation of pregnancy; Z37.0 Single live birth; Z23 Encounter for immunization; Z83.3 Family history of diabetes mellitus; Z91.013 Allergy to seafood
CPT/HCPCS: 36415; 85014; 85018; 85027; 86592; 86850; 86900; 86901; 88307; 90471; 90715; G0378; J2210; J2405; J2590; J3010; J7120

== ENCOUNTER 2021-06-03 20:25 | Emergency (ER) | payer SELFPAY ==
[2021-06-03 21:43] VITALS: BP 102/71
--- NOTE | 2021-06-03 22:04 | Emergency Department Report ---
ED Female HPI - General Chief complaint: Vaginal Bleeding Stated complaint: FAINTS SPELLS/SPOTTING BLOOD Time Seen by Provider: 06/03/21 21:57 Source: patient Mode of arrival: Ambulatory Limitations: No Limitations - History of Present Illness Initial comments: Presents with 26-year-old G4, due to ectopics. We had for vaginal bleeding x2 days rectal cycle October 13, 2020. Positive home test has not seen ASPARAGUS CUTTER. No fevers, chills, nausea or vomiting. Abdominal pain described as cramping for over 10 explained by movement and activity. Relieved by nothing tried, there is no hx of preeclampsia or gestational diabetes, pt secondary dizziness which consistent with other pregnancies. symptoms at this time are rated at 4/10 abd cramping and vaginal spotting. MD Complaint: vaginal bleeding - Related Data Previous Rx's Medication Instructions Recorded Last Taken Type HYDROcodone/APAP 5-325 [[place] 1 each PO Q6HR PRN #20 tablet 07/20/17 Unknown Rx 5/325] Ibuprofen [Motrin 600 MG tab] 600 mg PO Q8H PRN #30 tablet 07/20/17 Unknown Rx Ferrous Sulfate [Feosol 325 MG tab] 325 mg PO BID #60 tablet 04/20/19 Unknown Rx HYDROcodone/APAP 5-325 [[place] 1 each PO Q6HR PRN #20 tablet 04/20/19 Unknown Rx 5/325] Ibuprofen [Motrin] 800 mg PO Q8HR PRN #30 tablet 04/20/19 Unknown Rx Acetaminophen [Acetaminophen TAB] 650 mg PO Q6HR PRN #30 tablet 06/04/21 Unknown Rx metroNIDAZOLE [metroNIDAZOLE 0.75% 1 applicatio TP DAILY 5 Days #1 06/04/21 Un known Rx gel TOPICAL] tube Allergies Allergy/AdvReac Type Severity Reaction Status Date / Time shellfish derived Allergy Hives Verified 07/19/17 17:02 mosquitos Allergy Rash Uncoded 07/19/17 17:02 oranges Allergy Rash Uncoded 07/19/17 17:02 ED Review of Systems ROS: Stated complaint: FAINTS SPELLS/SPOTTING BLOOD Other details as noted in HPI Constitutional: denies: chills, fever Eyes: denies: eye pain, eye discharge, vision change ENT: denies: ear pain, throat pain Respiratory: denies: cough, shortness of breath, wheezing Cardiovascular: denies: chest pain, palpitations Endocrine: no symptoms reported Gastrointestinal: abdominal pain, nausea. denies: vomiting, diarrhea, constipation Genitourinary: other (vaginal bleeding ). denies: urgency, dysuria, discharge Musculoskeletal: back pain Skin: denies: rash, lesions Neurological: denies: headache, weakness, paresthesias Psychiatric: denies: anxiety, depression Hematological/Lymphatic: denies: easy bleeding, easy bruising ED Past Medical Hx - Past Medical History Previous Medical History?: Yes Hx Hypertension: No Hx Congestive Heart Failure: No Hx Diabetes: No Hx Deep Vein Thrombosis: No Hx Renal Disease: No Hx Sickle Cell Disease: No Hx Seizures: No Hx Asthma: Yes ( A CHILD) Hx COPD: No Hx HIV: No Additional medical history: ectopic preg - Surgical History Past Surgical History?: Yes Additional Surgical History: Miscarriage 2016. ovarian cyst rupture - Social History Smoking Status: Never Smoker - Medications Home Medications: Home Medications Medication Instructions Recorded Confirmed Last Taken Type HYDROcodone/APAP 5-325 [[place] 1 each PO Q6HR PRN #20 tablet 07/20/17 Unknown Rx 5/325] Ibuprofen [Motrin 600 MG tab] 600 mg PO Q8H PRN #30 tablet 07/20/17 Unknown Rx Ferrous Sulfate [Feosol 325 MG tab] 325 mg PO BID #60 tablet 04/20/19 Unknown Rx HYDROcodone/APAP 5-325 [[place] 1 each PO Q6HR PRN #20 tablet 04/20/19 Unknown Rx 5/325] Ibuprofen [Motrin] 800 mg PO Q8HR PRN #30 tablet 04/20/19 Unknown Rx Acetaminophen [Acetaminophen TAB] 650 mg PO Q6HR PRN #30 tablet 06/04/21 Unknown Rx metroNIDAZOLE [metroNIDAZOLE 0.75% 1 applicatio TP DAILY 5 Days #1 06/04/21 Unknown Rx gel TOPICAL] tube ED Physical Exam - General Limitations: No Limitations General appearance: alert, in no apparent distress - Head Head exam: Present: atraumatic, normocephalic - Eye Eye exam: Present: normal appearance, EOMI Pupils: Present: normal accommodation - ENT ENT exam: Present: mucous membranes moist - Neck Neck exam: Present: normal inspection - Respiratory Respiratory exam: Present: normal lung sounds bilaterally. Absent: respiratory distress, wheezes - Cardiovascular Cardiovascular Exam: Present: regular rate, normal rhythm, normal heart sounds. Absent: systolic murmur, diastolic murmur, rubs, gallop - GI/Abdominal GI/Abdominal exam: Present: soft, normal bowel sounds. Absent: distended, tenderness - Rectal Rectal exam: Present: deferred - Extremities Exam Extremities exam: Present: normal inspection, full ROM - Back Exam Back exam: Present: normal inspection, full ROM. Absent: CVA tenderness (R), CVA tenderness (L) - Neurological Exam Neurological exam: Present: alert, oriented X3, normal gait - Psychiatric Psychiatric exam: Present: normal affect, normal mood - Skin Skin exam: Present: warm ED Course Vital Signs 06/03/21 21:40 Temperature 98.8 F Pulse Rate 93 H Respiratory 18 Rate Blood Pressure 102/71 [Right] O2 Sat by Pulse 97 Oximetry ED Medical Decision Making - Lab Data Result diagrams: 06/03/21 22:19 Labs 06/03/21 06/03/21 06/03/21 22:19 22:19 22:19 WBC 9.9 RBC 4.32 Hgb 12.7 Hct 37.9 MCV 88 MCH 29 MCHC 33 RDW 13.8 Plt Count 218 Lymph % (Auto) 15.5 [place] % (Auto) 8.0 H Eos % (Auto) 3.0 Baso % (Auto) Waste[employer] Treatment Plant Attendant Lymph # (Auto) 1.5 Davidson # (Auto) 0.8 Eos # (Auto) 0.3 Baso # (Auto) 0.1 Seg Neutrophils % 72.9 H Seg Neutrophils # 7.2 HCG, Quant 75421 H Urine Color Urine Turbidity Urine pH Ur Specific [place] Urine Protein Urine Glucose (UA) Urine Ketones Urine Blood Urine Nitrite Urine Bilirubin Urine Urobilinogen Ur Leukocyte Esterase Urine WBC (Auto) Urine RBC (Auto) U Epithel Cells (Auto) Urine Bacteria (Auto) Urine Mucus Urine Yeast (Budding) Blood Type O POSITIVE 06/03/21 Unknown WBC RBC Hgb Hct MCV MCH MCHC RDW Plt Count Lymph % (Auto) [place] % (Auto) Eos % (Auto) Baso % (Auto) Lymph # (Auto) [place] # (Auto) Eos # (Auto) Baso # (Auto) Seg Neutrophils % Seg Neutrophils # HCG, Quant Urine Color Yellow Urine Turbidity Slightly-cloudy Urine pH 8.0 H Ur Specific [place] 1.023 Urine Protein <15 mg/dl Urine Glucose (UA) Neg Urine Ketones Neg Urine Blood Neg Urine Nitrite Neg Urine Bilirubin Neg Urine Urobilinogen 2.0 Ur Leukocyte Esterase Neg Urine WBC (Auto) 4.0 Urine RBC (Auto) 1.0 U Epithel Cells (Auto) 7.0 Urine Bacteria (Auto) 1+ Urine Mucus Few Urine Yeast (Budding) 2+ Blood Type - Radiology Data Radiology results: report reviewed, image reviewed Ultrasound single IUP 12 weeks and 4 days, FHR equals 161 bpm - Medical Decision Making OB ultrasound demonstrates single IUP 12 weeks and 4 days. heart rate 161 bpm , CBC normal, hCG 64,000, UA trace budding yeast, mild bacteria, plan metronidazole vaginal gel, follow-up with [facility] CONSULTANT in the next 1 to 2 days. Return to emergency should symptoms worsen. Patient verbalized agreement and understanding with discharge plan. Patient DC'd home in stable condition at this time. Critical care attestation.: If time is entered above; I have spent that time in minutes in the direct care of this critically ill patient, excluding procedure time. ED Disposition Clinical Impression: Vaginal bleeding during Vaginitis Qualifiers: Chronicity: acute Qualified Code(s): N76.0 - Acute vaginitis Disposition: 01 HOME / SELF CARE / HOMELESS Is pt being admited?: No Does the pt Need Aspirin: No Condition: Stable Instructions: Vaginitis, [id number], Activity Restriction During Additional Instructions: Take medications as prescribed, follow-up with [facility] ACC[facility] CONSULTANT in 1 to 2 days. Return to emergency should symptoms worsen. Prescriptions: Acetaminophen [Acetaminophen TAB] 650 mg PO Q6HR PRN #30 tablet PRN Reason: Pain metroNIDAZOLE [metroNIDAZOLE 0.75% gel TOPICAL] 1 applicatio TP DAILY 5 Days #1 tube Referrals: ERIKA BETANCOURT MD [Staff Physician] - 3-5 Days Forms: Work/School Release Form(ED) Time of Disposition: 01:32
[2021-06-03 23:21] LABS: Basophils # (Auto) 0.1 K/mm3 (0.0-0.1); Eosinophils # (Auto) 0.3 K/mm3 (0.0-0.4); Hematocrit 37.9 % (30.3-42.9); Hemoglobin 12.7 gm/dl (10.1-14.3); Lymphocytes # (Auto) 1.5 K/mm3 (1.2-5.4); Lymphocytes % (Auto) 15.5 % (13.4-35.0); Mean Corpuscular HGB Conc 33 % (30-34); Mean Corpuscular Volume 88 fl (79-97); Monocytes # (Auto) 0.8 K/mm3 (0.0-0.8); Platelet Count 218 K/mm3 (140-440); Red Blood Count 4.32 M/mm3 (3.65-5.03); Red Cell Distribution Width 13.8 % (13.2-15.2)
[2021-06-04 00:04] LABS: Bacteria,Urine 1+ /HPF (Negative); Bilirubin,Urine NEG (Negative); Blood,Urine NEG (Negative); Color,Urine Yellow (Yellow); Mucus,Urine FEW /HPF; Protein,Urine <15 mg/dL mg/dL (Negative)
--- NOTE | 2021-06-04 01:57 | Ultrasound Report ---
US OB <= 14 WEEKS FETUS US OB TRANSVAGINAL INDICATION / CLINICAL INFORMATION: vag bleed pos preg. COMPARISON: None available. FINDINGS: Intrauterine is seen with crown-rump length of 6.4 cm on transvaginal imaging (12 weeks, 5 days). heart rate is 160. No free fluid is seen. Right ovary is unremarkable. Left ovary contains 2 cysts, the larger measures 4 cm in maximum diameter. No adnexal lesions are seen. IMPRESSION: 1. Single viable intrauterine with sonographic gestational age of 12 weeks 5 days. 2. Left ovarian cysts. Signer Name: Reyes Frederick MD Signed: 06/04/2021 1:53 AM Workstation Name: [id number]
== END 2021-06-04 02:23 | disposition home or self-care (01) ==
LOC: ED 20:25
DX: O20.9 Hemorrhage in early pregnancy, unspecified (principal); O26.891 Other specified pregnancy related conditions, first trimester; N76.0 Acute vaginitis; J45.909 Unspecified asthma, uncomplicated; Z98.890 Other specified postprocedural states; Z91.013 Allergy to seafood; Z91.018 Allergy to other foods; Z79.899 Other long term (current) drug therapy; Z3A.12 12 weeks gestation of pregnancy
CPT/HCPCS: 36415; 76801; 76817; 81001; 84702; 85025; 86900; 86901; 99284